=== PATIENT | female | born 2000 | race Two or more races ===

== ENCOUNTER → 2024-06-10 | Outpatient (CLI) | payer BC, SELFPAY ==
--- NOTE | 2024-06-10 12:21 | XR_ITS ---
Examination: Pelvic ultrasound, transabdominal, complete Technique: Transabdominal ultrasound of the pelvis performed using grayscale imaging Date and time of exam: June 10, 2024 1242 hours INDICATIONS: Pelvic pain beginning 4 months ago FINDINGS: Uterus 6.5 x 4.3 x 5.4 cm Endometrial stripe 5 mm No uterine mass or intrauterine gestation Right ovary 3.9 x 1.9 x 2.0 cm arterial flow Left ovary 4.0 x 2.4 x 1.8 cm arterial flow IMPRESSION: Negative examination
== END | disposition home or self-care (01) ==
PROVIDERS: PCP Registered Nurse; Referring Provider Registered Nurse; Visit Provider Registered Nurse
DX: R10.2 Pelvic and perineal pain (principal)
CPT/HCPCS: 76856

== ENCOUNTER → 2024-09-12 | Outpatient (CLI) | payer BC, SELFPAY ==
[2024-09-12 15:39] LABS: HCG Qualitative,Urine Negative
== END | disposition home or self-care (01) ==
LOC: SLDO 13:03
PROVIDERS: Referring Provider Registered Nurse; Visit Provider Registered Nurse
DX: Z32.00 Encounter for pregnancy test, result unknown (principal)
CPT/HCPCS: 81025

== ENCOUNTER → 2024-09-15 | Outpatient (CLI) | payer BC, SELFPAY ==
--- NOTE | 2024-09-15 15:30 | XR_ITS ---
Examination: CT pelvis without intravenous contrast. 2-D sagittal and coronal reconstructions. Date and time of exam:September 15, 2024 1549 hours Comparison December 13, 2010 INDICATIONS: Palpable lumps in the pelvis noticed beginning 2 months ago CTDI: vol (mGy) :6.01 DLP: (mGycm) : 175 Technique: Multiple 3 mm axial sections of the pelvis have been obtained with the 64 slice high resolution scanner. 2-D sagittal and coronal reconstructions. Low dose protocols were performed. One or more of the following dose reduction techniques were used; automated exposure control, adjustment of the mA and/or KV according to patient size, use of iterative reconstruction technique. Findings: Anteverted uterus with no pelvic mass Mildly distended urinary bladder Small nonspecific lymph nodes in the groin regions IMPRESSION: Small lymph nodes in the groin regions bilaterally No pelvic wall mass noted
== END | disposition home or self-care (01) ==
PROVIDERS: Referring Provider Registered Nurse; Visit Provider Registered Nurse
DX: R10.2 Pelvic and perineal pain (principal); R19.00 Intra-abdominal and pelvic swelling, mass and lump, unspecified site
CPT/HCPCS: 72192